=== PATIENT | male | born 1950 | race Two or more races ===

== ENCOUNTER 2018-07-27 09:48 | Day surgery (SDC) | payer MEDICARE, OTHER ==
[~2018-07-27] VITALS: Ht 170.2 cm; Wt 81.6 kg
[2018-07-27] VITALS (8 sets, daily range): BP systolic 121–157; BP diastolic 71–83
[~2018-07-27 09:48] MED LIST: ARICEPT10 MG ORAL; GABAPENTIN100 MG ORAL; MELATONIN3 MG ORAL; NORCO 5-325 TA1 EACH ORAL; SINEMET 25-1001 EAC1 ORAL; SYNTHROID100 MCG ORAL; ceFAZolin sod 2 GM in NS 55 ML IVPB SCH
[2018-07-27] MEDS ORDERED: Bupivacaine 0.5% Inj 30 ml vial INJ ONE (10:27)
[2018-07-27] MEDS ORDERED: Lidocaine 1% Plain 30 ml INJ ONE (10:27)
[2018-07-27] MEDS ORDERED: LR 1000ml 1,000 ML IVLG SCH (10:44)
--- NOTE | 2018-07-27 10:44 | Anethesia Preoperative Eval ---
Anesthesia Pre-op PMH/ROS General Date of Evaluation: Jul 27, 2018 Anesthesiologist: Tom ASA Score: ASA 3 Mallampati Score Class I : Soft palate, uvula, fauces, pillars visible Class II: Soft palate, uvula, fauces visible Class III: Soft palate, base of uvula visible Class IV: Only hard plate visible Mallampati Classification: Class II Surgeon: Sabrina Diagnosis: Left foot pressure ulcer Surgical Procedure: Left foot I&D Anesthesia History: none Family History: no anesthesia problems Allergies: Coded Allergies: PENICILLINS (Verified Allergy, Unknown, 07/26/18) UNKNOWN REACTION Medications: see eMAR Patient NPO?: Yes Past Medical History Cardiovascular: Reports: HTN, other - HLD; Denies: CAD, [place], valve dz, arrhythmia Pulmonary: Denies: asthma, COPD, IVY, other Gastrointestinal/Genitourinary: Denies: GERD, CRI, ESRD, other Neurologic/Psychiatric: Reports: depression/anxiety; Denies: dementia, CVA, TIA, other Endocrine: Reports: DM; Denies: hypothyroidism, steroids, other HEENT: Denies: cataract (L), cataract (R), glaucoma, [place] (L), [place] (R), other Hematology/Immune: Denies: anemia, DVT, bleeding disorder, other Musculoskeletal/Integumentary: Denies: OA, RA, DJD, DDD, edema, other PSxH Narrative: Left toe amputation Anesthesia Pre-op Phys. Exam Physician Exam Last Vital Signs Date Time Temp Pulse Resp B/P (MAP) Pulse Ox O2 Delivery O2 Flow Rate FiO2 07/27/18 10:25 97.7 77 18 121/71 96 Room Air Constitutional: NAD Cardiovascular: RRR Respiratory: CTA Airway Exam Mallampati Score: Class II MO: full ROM: full Teeth: intact Anesthesia Pre-op A/P Labs Chemistry Test 07/27/18 10:23 Sodium Level Pending Potassium Level Pending Chloride Level Pending Carbon Dioxide Level Pending Blood Urea Nitrogen Pending Creatinine Pending Estimat Glomerular Filtration Rate Pending Glucose Level Pending Calcium Level Pending Studies Pre-op Studies: EKG - sr Risk Assessment & Plan Assessment: ASA III Plan: GA Status Change Before Surgery: No Pre-Antibiotics Drug: Jenifer Steinberg MD Jul 27, 2018 10:44
[2018-07-27] MEDS ORDERED: Midazolam 2mg/2ml Inj IVP PRN (10:45)
[2018-07-27] MEDS ORDERED: fentaNYL 100 mcg/2 mL IV PRN (10:45)
[2018-07-27] MEDS ORDERED: Ketorolac 30mg Inj IV PRN (10:45)
[2018-07-27] MEDS ORDERED: LORazepam Inj 2mg/ml 1ml IV PRN (10:45)
[2018-07-27] MEDS ORDERED: Hydromorphone 0.5mg/0.5ml inj IVP PRN (10:45)
[2018-07-27] MEDS ORDERED: DiphenhydrAMINE 50mg/ml Inj IVP PRN (10:45)
[2018-07-27 10:49] LABS: ANION GAP 4 mmol/L (5-15); BLOOD UREA NITROGEN 29 mg/dL (7-18); CALCIUM 9.4 MG/DL (8.5-10.1); CARBON DIOXIDE 29 MMOL/L (21-32); CHLORIDE 100 MMOL/L (98-107); CREATININE 1.4 MG/DL (0.55-1.30); POTASSIUM 4.9 MMOL/L (3.5-5.1); SODIUM 133 MMOL/L (136-145)
[2018-07-27] MEDS ORDERED: Propofol 200mg/20ml IV ONE (10:57)
[2018-07-27] MEDS ORDERED: fentaNYL 100 mcg/2 mL IV ONE (10:57)
[2018-07-27] MEDS ORDERED: Midazolam 2mg/2ml Inj ONE (10:57)
[2018-07-27] MEDS ORDERED: Zemuron 50mg/5ml Inj IV ONE (10:58)
[2018-07-27] MEDS ORDERED: Clindamycin 600mg 50 ML IV ONE (10:58)
--- NOTE | 2018-07-27 11:27 | Pre-Procedure Note/Attestation ---
Pre-Procedure Note/Attestation Complete Prior to Procedure Planned Procedure: left Indications for Procedure Pre-Operative Diagnosis: osteomyelitis left foot, s/p TMA, decubitus pressure ulcer L heel grade 3, DM 2 with PN, PAD Attestation I attest that I discussed the nature of the procedure; its benefits; risks and complications; and alternatives (and the risks and benefits of such alternatives ), prior to the procedure, with the patient (or the patient's legal retail representative). I attest that, if there was a reasonable possibility of needing a blood transfusion, the patient (or the patient's legal retail representative) was given the [facility] standardized written summary, pursuant to the [employer] [place] Blood Safety Act ([place] Health and Safety Code # 1645, as amended). I attest that I re-evaluated the patient just prior to the surgery and that there has been no change in the patient's H&P, except as documented below: FELIPE REEVES M.D. Jul 27, 2018 11:27
--- NOTE | 2018-07-27 12:20 | Operative Note - PDOC ---
Operative Note Operative Note Date of Operation/Procedure: Jul 27, 2018 Chief Complaint: non healing left heel pressure ulcer Pre-op Diagnosis: osteomyelitis left foot, s/p TMA, decubitus pressure ulcer L heel grade 3, DM 2 with PN, PAD Procedure: 1. debridement left heel, foot, and ankle , below fascia to level of subQ fat 2. application of xenograft left heel, foot, ankle (acell 7x10 sheet) Post-op Diagnosis: same as above Surgeon: felipe osorio dpchrissie [employer] Operator: none Additional Surgeons: dr jaramillo as the hinojosa Anesthesiologist: margi Specimen: yes Complications: none Estimated Blood Loss: minimal Drains: none Implant(s) used?: Yes - acell 7x10cm burn matrix xenograft (2 layer) Indications for Procedure stage 3 left heel ulcer dm 2 with pn pvd ulcer L ankle and TMA site, full thickness Description of Procedure see op report FELIPE OSORIO M.D. Jul 27, 2018 12:20
--- NOTE | 2018-07-28 05:30 | Operative Note - Dictated ---
DATE OF OPERATION: 07/27/2018 SURGEON: Leo Santiago D.P.M. RECREATION ENGINEER: None. ANESTHESIOLOGIST: Dr. Santos. ANESTHESIA: General anesthesia with 20 mL of 1% lidocaine plain injected in ankle block fashion as well as into the left heel. COMPLICATIONS: None. MATERIALS USED: A 17 x 10 cm matrix two layer xenograft was applied. PATHOLOGY: Cell culture was obtained of the left heel, sent for aerobic and anaerobic. ESTIMATED BLOOD LOSS: 20 mL. TOURNIQUET USED: None. PREOPERATIVE DIAGNOSES: 1. Diabetes with peripheral neuropathy. 2. Peripheral vascular disease. 3. Decubitus heel ulcer, left foot, stage III. 4. Dehiscence of left TMA site with stage II ulceration. 5. Left ankle ulcer. POSTOPERATIVE DIAGNOSES: 1. Diabetes with peripheral neuropathy. 2. Peripheral vascular disease. 3. Decubitus heel ulcer, left foot, stage III. 4. Dehiscence of left TMA site with stage II ulceration. 5. Left ankle ulcer. PROCEDURE PERFORMED: 1. Excisional debridement of the left heel and foot below fascia. 2. Application of xenograft to left foot and heel less than 50 square centimeters. DESCRIPTION OF PROCEDURE: The patient was brought to the operative suite and placed in supine position on the operative table. A proper time-out was performed identifying the correct patient, procedure, and limb. Left lower extremity prepped and draped in usual sterile fashion. We performed proper time-out and no calf tourniquet was used prior to beginning of the case. I used a #15 blade, a #10 blade, and a dermal curette to excise all nonviable fibrotic tissue down to the level of healthy bleeding tissue. Once this was completed, the wounds were washed with 2 liters of normal saline via bulb syringe. At this time, I obtained a swab culture of the left heel, sent for aerobic and anaerobic cultures. I then applied 17 x 10 cm matrix two layer sheath xenograft to the left heel and any leftovers I had I applied to the TMA site as well as the left anterior ankle wounds after debridement. They were all stapled and covered with Adaptic with Hydrogel, followed by wet-to-dry dressing and Kerlix and a Coban. This marked the completion of the case. DISPOSITION: The patient tolerated anesthesia well and procedure well without complications. He was transferred to PACU with vital signs stable and vascular status intact as noted by immediate hyperemia of the TMA site upon completion of the case. He will be nonweightbearing left lower extremity. Do not remove the Adaptic layer. Follow up with me in one week. Keep the dressings clean and dry at all times and do not get the left foot wet. The patient was given 600 IV clindamycin and does not need any further antibiotics at this time. No guarantees given or . Elevate left lower extremity at all times. I discussed the importance of not walking on the left foot as he goes to the bathroom. We will take the dressings down in one to two weeks. Leo Santiago M.D. DR: LUCERO JOB#: [id number] CC: ; Fax#: [phone]
--- NOTE | 2018-07-31 07:23 | 48 Hour Post Anesthesia Eval ---
Post Anesthesia Evaluation Procedure: Left foot I&D Date of Evaluation: Jul 27, 2018 Airway: patent Nausea: No Vomiting: No Pain Intensity: 0 Hydration Status: adequate Cardiopulmonary Status: at baseline Mental Status/LOC: patient returned to baseline Post-Anesthesia Complications: 0 Follow-up care needed: ready to discharge Jenifer Strange MD Jul 31, 2018 07:23
--- NOTE | 2018-07-31 07:23 | Immediate Post-Op Evaluation ---
Immediate Post-Op Evalulation Immediate Post-Op Evalulation Procedure: Left foot I&D Date of Evaluation: Jul 31, 2018 Pain Score (1-10): 0 Nausea: No Vomiting: No Complications 0 Patient Status: awake, reacts, patent, none Hydration Status: adequate Drug: Ancef 2g Given Within 1 Hr of Incision: Yes Jenifer Strange MD Jul 31, 2018 07:23
== END 2018-07-27 15:00 | disposition home or self-care (01) ==
LOC: SUR 09:48
DX: L89.623 Pressure ulcer of left heel, stage 3 (principal); T87.81 Dehiscence of amputation stump; Y83.8 Other surgical procedures as the cause of abnormal reaction of the patient, or of later complication, without mention of misadventure at the time of the procedure; Y92.009 Unspecified place in unspecified non-institutional (private) residence as the place of occurrence of the external cause; L97.329 Non-pressure chronic ulcer of left ankle with unspecified severity; I10 Essential (primary) hypertension; E11.40 Type 2 diabetes mellitus with diabetic neuropathy, unspecified; E78.5 Hyperlipidemia, unspecified; F32.9 Major depressive disorder, single episode, unspecified; F41.9 Anxiety disorder, unspecified; Z89.422 Acquired absence of other left toe(s); Z88.0 Allergy status to penicillin
CPT/HCPCS: 11043; 36415; 80048; 82962; 87070; 87075; 87181; 87205; C5277; C5278; J2001; J2250; J2704; J3010; 94003; 94150; S0077